=== PATIENT | female | born 1935 | race Caucasian/White ===

== ENCOUNTER 2017-11-25 18:37 | Emergency (ER) | payer OTHER, MEDICARE ==
[~2017-11-25] VITALS: Ht 152.4 cm; Wt 65.8 kg
[~2017-11-25 18:37] MED LIST: ASPIR 8181 MG PO; ASPIRIN EC325 MG PO; OMEPRAZOLE20 MG PO; ZETIA10 MG PO
--- NOTE | 2017-11-25 19:37 | ED GI/GU/ABDOMINAL COMPLAINT ---
History of Present Illness General Chief Complaint: Abdominal Pain/Flank Pain Stated Complaint: ABDOMINAL PAIN, CONSTIPATION Source: patient, old records Exam Limitations: no limitations Vital Signs & Intake/Output Vital Signs & Intake/Output Vital Signs Date Time Temp Pulse Resp B/P B/P Pulse O2 O2 Flow FiO2 Mean Ox Delivery Rate 11/25 1900 97.3 73 18 118/72 97 Room Air Room Air Allergies Coded Allergies: MDX - PCN (penicillin) (PCN (PENICILLIN)) (UNKNOWN 08/15/15) Triage Note: PT TO ED WITH C/O LOW ABD PAIN, LAST BM ? FRIDAY. SEEN HERE X 2 FOR THE SAME, DX WITH CONSTIPATION, PT TAKES MIRALAX AND FIBER DRINKS. Triage Nurses Notes Reviewed? yes ? n Is pt currently ? No Onset: Gradual Duration: constant Timing: recent history Quality/Severity: mild Severity Numbers: 3 Location: unknown Radiation: no radiation Prior Abdominal Problems: similar symptoms HPI: Patient is a 82-year-old female with past medical history of constipation who presents emergency room with concerns of constipation patient was evaluated on November 07 at [facility] emergency room and on THOSE OCCASSIONS received x- rays blood work and CT scan and which patient was given BOWEL promoting medications and was safely discharged Patient returns to the emergency room with concerns of no bowel movement since Friday. Last bowel movement was Friday showing brown stool Patient denies any abdominal pain fever chills nausea vomiting can tolerate by mouth Patient does presents emergency room with son who confirms story (Gelacio Grijalva) Reconcile Medications Aspirin (Ecotrin) 81 MG TABLET.DR 1 TAB PO DAILY HEART HEALTH Ezetimibe (Zetia) 10 MG TAB 1 TAB PO DAILY CHOL (Reported) Ezetimibe (Zetia) 10 MG TABLET 1 TAB PO DAILY HEART HEALTH (Reported) Magnesium Citrate 296 ML SOLUTION 296 ML PO ONCE PRN CONSTIPATION Omeprazole 20 MG CAPSULE.DR 20 MG PO DAILY AC GERD (Reported) Polyethylene Glycol 3350 (Miralax) 17 GRAM POWD.PACK 1 PAC PO DAILY CONSTIPATION (Reported) dissolve in water (Mary VALENZUELA,Harry Haque) Past History Travel History Traveled to [place] past 21 day No Medical History Any Pertinent Medical History? see below for history Neurological: dementia EENT: NONE Cardiovascular: CAD, hyperlipidemia Respiratory: NONE Gastrointestinal: constipation Hepatic: NONE Renal: NONE Musculoskeletal: NONE Psychiatric: NONE Endocrine: NONE Blood Disorders: NONE Cancer(s): NONE History of MRSA: No History of VRE: No History of CDIFF: No Surgical History Surgical History: none Psychosocial History Who do you live with Spouse What is your primary language Iraqi Tobacco Use: Never used ETOH Use: denies use Illicit Drug Use: denies illicit drug use Family History Family History, If Any: MOTHER FH: heart disease FATHER FH: heart disease Hx Contributory? No (Gelacio Grijalva) Review of Systems Review of Systems Constitutional: Reports: no symptoms. EENTM: Reports: no symptoms. Respiratory: Reports: no symptoms. Cardiovascular: Reports: no symptoms. GI: Reports: see HPI, constipation. Denies: abdominal pain. Genitourinary: Reports: no symptoms. Musculoskeletal: Reports: no symptoms. Skin: Reports: no symptoms. Neurological/Psychological: Reports: no symptoms. Hematologic/Endocrine: Reports: no symptoms. Immunologic/Allergic: Reports: no symptoms. All Other Systems: Reviewed and Negative (Gelacio Grijalva) Physical Exam Physical Exam General Appearance: no apparent distress, alert, comfortable Head: atraumatic Eyes: Bilateral: normal appearance. Ears, Nose, Throat, Mouth: moist mucous membrane Neck: normal inspection Respiratory: no respiratory distress Cardiovascular: regular rate/rhythm Gastrointestinal: normal bowel sounds, soft, non-tender Extremities: normal range of motion Neurologic/Psych: no motor/sensory deficits, awake, alert Skin: intact, normal color, warm/dry Core Measures ACS in differential dx? No Sepsis Present: No Sepsis Focused Exam Completed? No (Gelacio Grijalva) Progress Differential Diagnosis: AAA, AMI, appendicitis, biliary colic, bowel obstruction , colon cancer, cholecystitis, diverticulitis, endometritis, gastritis, hepatitis, hernia, hemorrhoids, ischemic bowel, inflamm bowel dis, kidney stone, ovarian cyst, ovarian torsion, pancreatitis, PID/cervicitis, peptic ulcer, PUD/ GERD, perforated viscous, SBO, UTI/pyelo Plan of Care: Orders Procedure Date/time Status LACTIC ACID 11/25 2209 Active LACTIC ACID 11/25 1909 Complete COMPREHENSIVE METABOLIC PANEL 11/25 1909 Complete CBC WITHOUT DIFFERENTIAL 11/25 1909 Complete Laboratory Tests 11/25/17 1934: Anion Gap 10, Estimated GFR > 60, BUN/Creatinine Ratio 10.0, Glucose 98, Lactic Acid 2.3 H, Calcium 9.3, Total Bilirubin 0.5, AST 36, ALT 44, Alkaline Phosphatase 67, Total Protein 6.8, Albumin 3.8, Globulin 3.0, Albumin/Globulin Ratio 1.3, CBC w Diff NO MAN DIFF REQ, RBC 4.53, MCV 89.3, MCH 29.6, MCHC 33.1, RDW 13.1, MPV 7.6, Gran % 57.6, Lymphocytes % 33.6, Monocytes % 7.9, Eosinophils % 0.6, Basophils % 0.3, Absolute Granulocytes 4.5, Absolute Lymphocytes 2.6, Absolute Monocytes 0.6, Absolute Eosinophils 0, Absolute Basophils 0 Patient on initial presentation was resting complete bedside no apparent distress afebrile Patient has nontender abdomen x-ray of abdomen was unremarkable until up structure and patient will be advised to begin bowel stool softener regimens and magnesium citrate and follow up with GI on discharge patient looks well was able tolerate by mouth and had no questions Diagnostic Imaging: Viewed by Me: Radiology Read. Radiology Impression: no acute abnormality Initial ED EKG: none Comments: PATIENT: DYANA GOODWIN PRESENT AGE: 82 PATIENT ACCOUNT NO: [id number] : 35 LOCATION: [facility] ORDERING PHYSICIAN: Gelacio QUEZADA SERVICE DATE: 11/25/17 EXAM TYPE: RAD - ESB-DEPCCTO-MIVAOI VIEW EXAMINATION: ABDOMEN 1 VIEW CLINICAL INFORMATION: Constipation. COMPARISON: 11/15/2017. TECHNIQUE: A supine view of the abdomen is provided. FINDINGS: There are no dilated loops of small bowel. There are no air-fluid levels. There is no appendicolith. The visualized lung bases are clear. The osseous structures are stable. IMPRESSION: Unremarkable bowel gas pattern. DICTATED BY: Elijah Huntley MD DATE/TIME DICTATED:11/25/171939 REGIONAL SALES REPRESENTATIVE:CHAVA (Gelacio Grijalva) Departure Departure Disposition: HOME OR SELF CARE Condition: Stable Clinical Impression Primary Impression: Constipation Referrals: Yahaira VALENZUELA,Kb Jang (PCP/Family) Jasbir Wadsworth MD Additional Instructions: As discussed continue your fiber intake, begin drinking plain water for hydration, begin [id number] stool softener and begin the prescription of magnesium citrate. This week please follow up and establish a french cord binder Dr. Wadsworth. Prescription is waiting at [facility]. If symptoms worsen return to emergency room. Departure Forms: Customer Survey General Discharge Information Prescriptions: Current Visit Scripts Magnesium Citrate 296 ML PO ONCE PRN CONSTIPATION #296 ML (Riaz QUEZADA,Gelacio) PA/SHEET METAL FOREMAN Co-Sign Statement Statement: ED Attending supervision documentation- [X] I saw and evaluated the patient. I have also reviewed all the pertinent lab results and diagnostic results. I agree with the findings and the plan of care as documented in the PA's/SHEET METAL FOREMAN's documentation. Patient presents for evaluation of possible constipation, last bowel movement 2-3 days ago. Physical examination reveals a nondistended abdomen an uncomfortable appearing patient. [] I have reviewed the ED Record and agree with the PA's/SHEET METAL FOREMAN's documentation. [] Additions or exceptions (if any) to the PAs/SHEET METAL FOREMAN's note and plan are summarized below: [] (Mary VALENZUELA,Harry Haque)
--- NOTE | 2017-11-25 19:44 | RADIOLOGY REPORT ---
EXAMINATION: ABDOMEN 1 VIEW CLINICAL INFORMATION: Constipation. COMPARISON: 11/15/2017. TECHNIQUE: A supine view of the abdomen is provided. FINDINGS: There are no dilated loops of small bowel. There are no air-fluid levels. There is no appendicolith. The visualized lung bases are clear. The osseous structures are stable. IMPRESSION: Unremarkable bowel gas pattern.
[2017-11-25 19:49] LABS: ABSOLUTE BASOPHIL COUNT 0 /CUMM (0.0-0.2); ABSOLUTE EOSINOPHIL COUNT 0 /CUMM (0.0-0.7); ABSOLUTE GRANULOCYTE CT 4.5 /CUMM (1.4-6.5); ABSOLUTE LYMPH COUNT 2.6 /CUMM (1.2-3.4); ABSOLUTE MONOCYTE COUNT 0.6 /CUMM (0.10-0.60); BASOPHIL % 0.3 % (0.0-2.0); EOSINOPHIL % 0.6 % (0-5); GRANULOCYTE % 57.6 % (42.2-75.2); HEMATOCRIT 40.4 % (37-47); MEAN CORPUSCULAR HGB 29.6 PG (27.0-31.0); MEAN CORPUSCULAR HGB CONC 33.1 G/DL (33.0-37.0); MEAN CORPUSCULAR VOLUME 89.3 FL (81.0-99.0); MEAN PLATELET VOLUME 7.6 FL (7.4-10.4); PLATELET COUNT 359 /CUMM (130-400); RBC DISTRIBUTION WIDTH 13.1 % (11.5-14.5); RED BLOOD CELL CT 4.53 /CUMM (4.20-5.40); WHITE BLOOD CELL COUNT 7.8 /CUMM (4.8-10.8)
[2017-11-25] MEDS ORDERED: ZETIA10 M1 PO (20:23)
[2017-11-25] MEDS ORDERED: MIRALAX17 G1 PO (20:23)
[2017-11-25] MEDS ORDERED: MAGNESIUM CITR296 ML PO (20:42)
[2017-11-25 20:48] VITALS: BP 128/82
== END 2017-11-25 20:50 ==
LOC: ERH 18:37
PROVIDERS: Physician Assistant
DX: K59.00 Constipation, unspecified (principal)
CPT/HCPCS: 74018

== ENCOUNTER 2018-01-14 10:00 | Emergency (ER) | payer OTHER, MEDICARE ==
[~2018-01-14] VITALS: Ht 152.4 cm; Wt 59.0 kg
[~2018-01-14 10:00] MED LIST changes: +MAGNESIUM CITR296 ML PO; +MIRALAX17 G1 PO; +ZETIA10 M1 PO
[2018-01-14 10:11] VITALS: BP 109/66
--- NOTE | 2018-01-14 14:23 | ED GI/GU/ABDOMINAL COMPLAINT ---
History of Present Illness General Chief Complaint: General Adult Stated Complaint: " I HAVE A PROBLEM WITH MY THROAT 1S 1 MONTH" Source: patient, family, old records Exam Limitations: no limitations Vital Signs & Intake/Output Vital Signs & Intake/Output Vital Signs Date Time Temp Pulse Resp B/P B/P Pulse O2 O2 Flow FiO2 Mean Ox Delivery Rate 01/14 1445 98 Room Air 01/14 1011 97.6 69 20 109/66 97 Room Air Allergies Coded Allergies: MDX - PCN (penicillin) (PCN (PENICILLIN)) (UNKNOWN 08/15/15) Reconcile Medications Aspirin (Ecotrin) 81 MG TABLET.DR 1 TAB PO DAILY HEART HEALTH Ezetimibe (Zetia) 10 MG TAB 1 TAB PO DAILY CHOL (Reported) Ezetimibe (Zetia) 10 MG TABLET 1 TAB PO DAILY HEART HEALTH (Reported) Magnesium Citrate 296 ML SOLUTION 296 ML PO ONCE PRN CONSTIPATION Omeprazole 20 MG CAPSULE.DR 20 MG PO DAILY AC GERD (Reported) Polyethylene Glycol 3350 (Miralax) 17 GRAM POWD.PACK 1 PAC PO DAILY CONSTIPATION (Reported) dissolve in water Triage Note: PT STATES SHE IS HAVING TROUBLE SWALLOWING X 2 WEEKS. STATES SHE HAS HAD THE ISSUE FOR 6 MONTHS BUT NOT BAD. HAD AN ENDOSCOPY A MONTH AGO WHICH WAS NORMAL. HAS APPT ENT January ABDOMINAL PAIN X 6 MONTHS. WENT TO TREATING ENGINEER WHO DID AN INTERNAL BUT TREATING ENGINEER WANTED AN U/S TO MAKE SURE EVERYTHING WAS OK Triage Nurses Notes Reviewed? yes ? n Is pt currently ? Yes Onset: Gradual Duration: week(s): Timing: recent history Quality/Severity: moderate Location: lower abdomen HPI: 82yo female with hx of dementia, CAD presents to ED complaining of lower abdominal pain x 3 months and foreign body sensation in throat x months. Patient saw her [employer] who did a internal exam last week and recommended she obtain outpatient ultrasound for further evaluation. Patient also saw gastroenterology and had a endoscopy and colonoscopy performed, she is unsure of the results. Patient reports foreign body sensation whenever she swallows pills or food, it feels as though food bolus will get stuck in her throat and then gradually resolves on its own. Patient also reports intermittent "hot" sensation in her chest bilaterally which has been present randomly for months, she denies a chest pain. Patient denies fevers, vomiting, dyspnea, aspiration. (Gaye QUEZADA,Shannan Gonzalez) Past History Travel History Traveled to [place] past 21 day No Medical History Any Pertinent Medical History? see below for history Neurological: dementia EENT: NONE Cardiovascular: CAD, hyperlipidemia Respiratory: NONE Gastrointestinal: constipation Hepatic: NONE Renal: NONE Musculoskeletal: NONE Psychiatric: NONE Endocrine: NONE Blood Disorders: NONE Cancer(s): NONE History of MRSA: No History of VRE: No History of CDIFF: No Surgical History Surgical History: none Psychosocial History Who do you live with Spouse What is your primary language Mosotho Tobacco Use: Never used ETOH Use: denies use Illicit Drug Use: denies illicit drug use Family History Family History, If Any: MOTHER FH: heart disease FATHER FH: heart disease Hx Contributory? No (Shannan Hercules) Review of Systems Review of Systems Constitutional: Reports: no symptoms. EENTM: Reports: see HPI. Respiratory: Reports: no symptoms. Cardiovascular: Reports: see HPI. GI: Reports: see HPI. Genitourinary: Reports: see HPI. Musculoskeletal: Reports: no symptoms. Skin: Reports: no symptoms. Neurological/Psychological: Reports: no symptoms. Hematologic/Endocrine: Reports: no symptoms. Immunologic/Allergic: Reports: no symptoms. All Other Systems: Reviewed and Negative (Shannan Hercules) Physical Exam Physical Exam General Appearance: well developed/nourished, no apparent distress, alert, awake Head: atraumatic, normal appearance Eyes: Bilateral: normal appearance. Ears, Nose, Throat, Mouth: hearing grossly normal, moist mucous membrane, pharynx WNL Neck: normal inspection, supple, full range of motion Respiratory: normal breath sounds, no respiratory distress, lungs clear Cardiovascular: regular rate/rhythm Gastrointestinal: normal bowel sounds, soft, non-tender, no organomegaly Back: normal inspection, normal range of motion Extremities: normal range of motion Neurologic/Psych: awake, alert, oriented x 3 Skin: intact, normal color, warm/dry Core Measures ACS in differential dx? No Sepsis Present: No Sepsis Focused Exam Completed? No (Shannan Hercules) Progress Differential Diagnosis: colon cancer, gastritis, hernia, inflamm bowel dis, intrauterine , peptic ulcer, PUD/GERD, UTI/pyelo, malignancy Plan of Care: Orders Procedure Date/time Status EKG 01/14 1452 Active TROPONIN LEVEL 01/14 1440 Complete COMPREHENSIVE METABOLIC PANEL 01/14 1417 Complete CBC WITHOUT DIFFERENTIAL 01/14 1417 Complete URINALYSIS 01/14 1013 Complete Laboratory Tests 01/14/18 1730: Urine Color YEL, Urine Clarity CLEAR, Urine pH 5.5, Ur Specific [place] 1.025, Urine Protein NEG, Urine Ketones NEG, Urine Nitrite NEG, Urine Bilirubin NEG, Urine Urobilinogen 0.2, Ur Leukocyte Esterase TRACE H, Ur Microscopic SEDIMENT EXAMINED, Urine RBC RARE, Urine WBC RARE, Ur Epithelial Cells MOD H, Urine Bacteria MOD H, Urine Hemoglobin NEG, Urine Glucose NEG 01/14/18 1452: Troponin I Cancelled 01/14/18 1440: Anion Gap 12, Estimated GFR > 60, BUN/Creatinine Ratio 15.0, Glucose 146 H, Calcium 9.4, Total Bilirubin 0.5, AST 28, ALT 26, Alkaline Phosphatase 68, Troponin I < 0.01, Total Protein 6.9, Albumin 3.7, Globulin 3.2, Albumin/ Globulin Ratio 1.2, CBC w Diff NO MAN DIFF REQ, RBC 4.87, MCV 89.3, MCH 28.7, MCHC 32.2 L, RDW 13.3, MPV 8.0, Gran % 68.4, Lymphocytes % 24.6, Monocytes % 6.0, Eosinophils % 0.7, Basophils % 0.3, Absolute Granulocytes 4.2, Absolute Lymphocytes 1.5, Absolute Monocytes 0.4, Absolute Eosinophils 0, Absolute Basophils 0 Patient eating Pizza here in the ED. She was offered CT neck however patient and daughter decline. Patient had normal CT abdomen and pelvis last month. She had normal biopsy of esophageal tissues with her GI doctor as well. Patient has appointment with GI tomorrow. She will likely need barium swallow study. Patient given copy of ultrasound results to discuss with her OBGYN further. Patient and daughter not willing to stay in ED to waiting for results of UA, they left prior to obtaining discharge paperwork. Dr. Hernandez saw and evaluated this patient and agrees with the plan of care, he is aware patient left prior to competion of full work up. Diagnostic Imaging: Viewed by Me: Ultrasound. Discussed w/RAD: Ultrasound. Radiology Impression: PATIENT: DYANA GOODWIN PRESENT AGE: 82 PATIENT ACCOUNT NO: [id number] : 35 LOCATION: [facility] ORDERING PHYSICIAN: Shannan QUEZADA SERVICE DATE: 01/14/183618 EXAM TYPE: US - US-PELVIC MASS DIAG US PELVIS CLINICAL INFORMATION: Pelvic pain for 3 months. COMPARISON: Abdominal CT 11/07/2017. TECHNIQUE: Real-time grayscale, color Doppler, and spectral Doppler analysis of the pelvis is performed transabdominally. FINDINGS: The uterus measures 8.8 x 3.4 x 4.2 cm anteroverted. Cervical length is 2.0 cm. No uterine masses. The right ovary measures 4.1 x 3.1 x 2.4 cm with a volume of 16.0 mL. There is a 2.4 x 2.6 x 2.5 cm simple appearing right ovarian cyst. Normal color Doppler flow and normal arterial and venous waveforms. The left ovary is not visualized and cannot be assessed. IMPRESSION: - There is a 2.6 cm simple right ovarian cyst. There is no sonographic evidence of active right-sided ovarian torsion. - The left ovary is not visualized and cannot be assessed. DICTATED BY: Harry Mccarthy MD DATE/TIME DICTATED:01/14/181732 PRINT PRODUCTION MANAGER:CHAVA DATE/TIME TRANSCRIBED:1732 CONFIDENTIAL, DO NOT COPY WITHOUT APPROPRIATE AUTHORIZATION. < Electronically signed in Other Vendor System> SIGNED BY: Harry Mccarthy MD 01/14/18 7128 Initial ED EKG: sinus rhythm @56bpm, nonspecific ST changes (Shannan Hercules) Departure Departure Disposition: HOME OR SELF CARE Condition: Stable Clinical Impression Primary Impression: Foreign body sensation in throat Secondary Impressions: Pelvic pain Referrals: Yahaira VALENZUELA,Kb Jang (PCP/Family) Departure Forms: Customer Survey General Discharge Information (Shannan Hercules) PA/SIGN HANGER Co-Sign Statement Statement: ED Attending supervision documentation- [X] I saw and evaluated the patient. I have also reviewed all the pertinent lab results and diagnostic results. I agree with the findings and the plan of care as documented in the PA's/SIGN HANGER's documentation. [] I have reviewed the ED Record and agree with the PA's/SIGN HANGER's documentation. [] Additions or exceptions (if any) to the PAs/SIGN HANGER's note and plan are summarized below: [] (Mary VALENZUELA,Harry Haque)
[2018-01-14 15:03] LABS: ABSOLUTE BASOPHIL COUNT 0 /CUMM (0.0-0.2); ABSOLUTE EOSINOPHIL COUNT 0 /CUMM (0.0-0.7); ABSOLUTE GRANULOCYTE CT 4.2 /CUMM (1.4-6.5); ABSOLUTE LYMPH COUNT 1.5 /CUMM (1.2-3.4); ABSOLUTE MONOCYTE COUNT 0.4 /CUMM (0.10-0.60); BASOPHIL % 0.3 % (0.0-2.0); EOSINOPHIL % 0.7 % (0-5); GRANULOCYTE % 68.4 % (42.2-75.2); HEMATOCRIT 43.5 % (37-47); MEAN CORPUSCULAR HGB 28.7 PG (27.0-31.0); MEAN CORPUSCULAR HGB CONC 32.2 G/DL (33.0-37.0); MEAN CORPUSCULAR VOLUME 89.3 FL (81.0-99.0); PLATELET COUNT 375 /CUMM (130-400); RBC DISTRIBUTION WIDTH 13.3 % (11.5-14.5); RED BLOOD CELL CT 4.87 /CUMM (4.20-5.40); WHITE BLOOD CELL COUNT 6.2 /CUMM (4.8-10.8)
--- NOTE | 2018-01-14 17:40 | ULTRASOUND REPORT ---
US PELVIS CLINICAL INFORMATION: Pelvic pain for 3 months. COMPARISON: Abdominal CT 11/07/2017. TECHNIQUE: Real-time grayscale, color Doppler, and spectral Doppler analysis of the pelvis is performed transabdominally. FINDINGS: The uterus measures 8.8 x 3.4 x 4.2 cm anteroverted. Cervical length is 2.0 cm. No uterine masses. The right ovary measures 4.1 x 3.1 x 2.4 cm with a volume of 16.0 mL. There is a 2.4 x 2.6 x 2.5 cm simple appearing right ovarian cyst. Normal color Doppler flow and normal arterial and venous waveforms. The left ovary is not visualized and cannot be assessed. IMPRESSION: - There is a 2.6 cm simple right ovarian cyst. There is no sonographic evidence of active right-sided ovarian torsion. - The left ovary is not visualized and cannot be assessed.
== END 2018-01-14 18:24 ==
LOC: ERH 10:00
PROVIDERS: Physician Assistant
DX: T17.208A Unspecified foreign body in pharynx causing other injury, initial encounter (principal); R10.2 Pelvic and perineal pain
CPT/HCPCS: 81001; 93005; 93010